=== PATIENT | female | born 1950 | race Caucasian/White ===

== ENCOUNTER 2018-05-02 17:33 | Emergency (ER) | payer MEDICARE ==
[~2018-05-02] VITALS: Ht 154.9 cm; Wt 112.4 kg
[2018-05-02 17:39] VITALS: BP 130/91
[2018-05-02] MEDS ORDERED: LIDOCAINE 2%, 20ML SQ ONE (18:00)
[2018-05-02] MEDS ORDERED: DIPH,PERTUSS(ACELL),TET VAC/PF 0.5 ML IM-VACC ONE ×2 (19:00→19:07)
== END 2018-05-02 19:52 | disposition home or self-care (01) ==
LOC: ED 18:00
DX: S52.591A Other fractures of lower end of right radius, initial encounter for closed fracture (principal); S01.511A Laceration without foreign body of lip, initial encounter; W01.0XXA Fall on same level from slipping, tripping and stumbling without subsequent striking against object, initial encounter; Y93.89 Activity, other specified; Y99.8 Other external cause status; Y92.009 Unspecified place in unspecified non-institutional (private) residence as the place of occurrence of the external cause
CPT/HCPCS: 12011; 29125; 73110; 90471; 90715; 99284; J3490

== ENCOUNTER 2019-09-30 10:10 | Emergency (ER) | payer MEDICARE ==
[~2019-09-30] VITALS: Ht 157.5 cm; Wt 116.0 kg
[2019-09-30 10:11] VITALS: BP 156/46
[2019-09-30] MEDS ORDERED: METHOCARBAMOL 750 MG TABLET PO ONE (11:00)
[2019-09-30] MEDS ORDERED: OXYcodone/APAP 5/325MG TABLET PO ONE (11:00)
[2019-09-30] MEDS ORDERED: OXYcodone/APAP 5/325MG TABLET ONE (11:05)
[2019-09-30] MEDS ORDERED: METHOCARBAMOL 750 MG TABLET ONE (11:05)
[2019-09-30] MEDS ORDERED: KETOROLAC 30 MG/1 ML ONE (11:20)
[2019-09-30] MEDS ORDERED: KETOROLAC 30 MG/1 ML IM ONE (11:30)
== END 2019-09-30 11:56 | disposition home or self-care (01) ==
LOC: ED 11:49
DX: S39.012A Strain of muscle, fascia and tendon of lower back, initial encounter (principal); I10 Essential (primary) hypertension; X58.XXXA Exposure to other specified factors, initial encounter; Y93.89 Activity, other specified; Y92.89 Other specified places as the place of occurrence of the external cause; Y99.8 Other external cause status
CPT/HCPCS: 96372; 99283; J1885; J7512